=== PATIENT | female | born 1990 | race Caucasian/White ===

== ENCOUNTER 2017-12-25 21:31 | Emergency (ER) | payer BC ==
[~2017-12-25] VITALS: Ht 165.1 cm; Wt 104.3 kg
[~2017-12-25 21:31] MED LIST: IBUP-1773 PO; PREN-37 PO
[2017-12-25] MEDS ORDERED: SERT25TA PO (21:48)
--- NOTE | 2017-12-25 23:15 | ED EENT ---
History of Present Illness General Chief Complaint: Ear Problems Stated Complaint: L EAR POPPING,PAIN Nursing Triage Note: PT PRESENTS TO ER WITH COMPLAINT OF LEFT EAR PAIN. STATES SHE HAD SINUS ISSUES THIS PAST WEEK. STATES HER EAR POPPED TODAY AND HAD SHOOTING PAIN DOWN HER NECK. ALSO STATES THAT THE LEFT SIDE OF HER FACE FEELS NUMB AND THE INSIDE OF HER MOUTH. Source: patient Exam Limitations: no limitations History of Present Illness Date Seen by Provider: Dec 25, 2017 Time Seen by Provider: 23:15 Initial Comments 27-year-old female patient presents to the emergency department complains of left ear pain beginning today. Does complain of nasal congestion, rhinorrhea, and sore throat since last week. Does report feeling a pop in the left ear and clear fluid draining from the ear earlier today. Timing/Duration: abrupt Location: ear (L) Prearrival Treatment: other (reports taking 2 Tylenol and 400 mg of ibuprofen at 2000 today.) Allergies and Home Medications Allergies Coded Allergies: No Known Drug Allergies (Unverified , 06/14/16) Patient Home Medication List Home Medication List Reviewed: Yes Review of Systems Constitutional: No chills, No dizziness, No fever; malaise Eyes: No Symptoms Reported Ears: See HPI Nose: see HPI Mouth: no symptoms reported Throat: see HPI, pain, painful swallowing; denies difficulty with fluids Respiratory: no symptoms reported Cardiovascular: no symptoms reported Gastrointestinal: no symptoms reported Musculoskeletal: no symptoms reported Skin: no symptoms reported Neurological: No Symptoms Reported All Other Systems Reviewed Negative Unless Noted: Yes (Negative excepted noted.) Past Qdmtvqq-Trmtsm-Tboxzo Hx Patient Social History Alcohol Use: Denies Use Recreational Drug Use: No Smoking Status: Former Smoker Type Used: Cigarettes Former Smoker, Quit: Jun 16, 2013 Recent Foreign Travel: No Contact w/Someone Who Travel: No Recent Infectious Disease Expo: No Recent Hopitalizations: No Immunizations Up To Date Tetanus Booster (TDap): Unknown Seasonal Allergies Seasonal Allergies: Yes Past Medical History Surgeries: Yes (C SECTION 04/2015) Section Respiratory: No (BRONCHOSCOPY ) Cardiac: No Neurological: No Reproductive Disorders: No Female Reproductive Disorders: Denies Gastrointestinal: No Musculoskeletal: Yes Chronic Back Pain Endocrine: No Cancer: No Psychosocial: Yes Anxiety, Depression Integumentary: No Blood Disorders: No Adverse Reaction/Blood Tranf: No Family Medical History Reviewed Nursing Family Hx Ankylosing spondylitis 19 MOTHER Asthma SON SON No Pertinent Family Hx Physical Exam Vital Signs Vital Signs - First Documented 12/25/17 21:40 Temp 97.0 Pulse 95 Resp 20 B/P (MAP) 143/100 (114) Pulse Ox 100 O2 Delivery Room Air General Appearance: WD/WN, no apparent distress, obese Eyes: bilateral eye normal inspection, bilateral eye PERRL, bilateral eye EOMI Ears: right ear TM normal; left ear TM red, left ear TM perforation; bilateral ear auricle normal, bilateral ear canal normal Nose: other (positive nasal congestion.) Mouth/Throat: normal mouth inspection; No excessive drooling, No mandibular swelling, No maxillary swelling, No uvula swelling, No voice changes; other ( positive pharyngeal erythema.) Neck: full range of motion, supple, other (anterior cervical lymphadenopathy, tender to palpation.) Cardiovascular: normal peripheral pulses, regular rate, rhythm, no murmur Respiratory: lungs clear, normal breath sounds, no respiratory distress, no accessory muscle use Neurologic/Psychiatric: alert, oriented x 3, other (flat affect.) Skin: normal color, warm/dry Progress/Results/Core Measures Vital Signs/I&O 12/25/17 21:40 Temp 97.0 Pulse 95 Resp 20 B/P (MAP) 143/100 (114) Pulse Ox 100 O2 Delivery Room Air Blood Pressure Mean: 114 Departure Impression Primary Impression: Left otitis media with spontaneous rupture of eardrum Additional Impression: Upper respiratory infection Qualified Codes: J06.9 - Acute upper respiratory infection, unspecified Disposition: 01 HOME, SELF-CARE Condition: Improved Departure-Patient Inst. Decision time for Depature: 23:27 Referrals: NO,LOCAL PHYSICIAN (PCP) Primary Care Physician Patient Instructions: Ruptured Eardrum (DC) Add. Discharge Instructions: All discharge instructions reviewed with patient and/or family. Voiced understanding. Medications as instructed. Use Tylenol Extra Strength over-the- counter as directed for pain. Ibuprofen 800 mg by mouth every 8 hours as needed for pain. Follow-up with your family practitioner for recheck as an outpatient. Return to the emergency department for worsened symptoms or any other concerns. Scripts Cefdinir (Cefdinir) 300 Mg Capsule 300 MG PO BID, #20 CAP 0 Refills Prov: FRANCE LAM 12/25/17 Ofloxacin (Ofloxacin) 5 Ml Drops 10 DROPS OT BID, #14 EA 0 Refills Prov: FRANCE LAM 12/25/17 FRANCE LAM Dec 25, 2017 23:15
[2017-12-25] MEDS ORDERED: IBUPROFEN 800 MG (MOTRIN) TAB PO STA (23:26)
[2017-12-25] MEDS ORDERED: OFLO5DRO7 OT (23:29)
[2017-12-25] MEDS ORDERED: CEFD300C3 PO (23:29)
[2017-12-25] MEDS ORDERED: CEPHALEXIN 250 MG (KEFLEX) CAP PO ONE (23:30)
[2017-12-25 23:40] VITALS: BP 138/98
== END 2017-12-25 23:39 | disposition home or self-care (01) ==
LOC: EDUNIT# 21:31 → ER 21:34
DX: H72.92 Unspecified perforation of tympanic membrane, left ear (principal); J06.9 Acute upper respiratory infection, unspecified; F41.9 Anxiety disorder, unspecified; F32.9 Major depressive disorder, single episode, unspecified; Z87.59 Personal history of other complications of pregnancy, childbirth and the puerperium; Z87.891 Personal history of nicotine dependence
CPT/HCPCS: 99283

== ENCOUNTER 2018-08-12 16:10 | Outpatient (CLI) | payer BC ==
[~2018-08-12] VITALS: Ht 165.1 cm; Wt 121.8 kg
[~2018-08-12 16:10] MED LIST changes: +CEFD300C3 PO; +OFLO5DRO7 OT; +SERT25TA PO
[2018-08-12] MEDS ORDERED: NS 1000 ML IV BAG IV ONE (17:00)
[2018-08-12] MEDS ORDERED: PROMETHAZINE INJ 25 MG/ML (PHENERGAN) AMP IVP NR (17:00)
[2018-08-12] MEDS ORDERED: NS IV 1000 ML 1,000 ML IV SCH (17:00)
[2018-08-12 17:42] LABS: BASOPHILS % (AUTO) 0 % (0-10); EOSINOPHILS # (AUTO) 0.2 10^3/uL (0.0-0.3); EOSINOPHILS % (AUTO) 2 % (0-10); HEMATOCRIT 40 % (35-52); HEMOGLOBIN 13.5 G/DL (11.5-16.0); LYMPHOCYTES % (AUTO) 23 % (12-44); MEAN CORPUSCULAR HEMOGLOBIN 28 PG (25-34); MEAN CORPUSCULAR HGB CONC 34 G/DL (32-36); MEAN CORPUSCULAR VOLUME 84 FL (80-99); MEAN PLATELET VOLUME 9.3 FL (7.4-10.4); MONOCYTES # (AUTO) 0.6 X 10^3 (0.0-1.0); MONOCYTES % (AUTO) 6 % (0-12); NEUTROPHILS # (AUTO) 6.1 X 10^3 (1.8-7.8); NEUTROPHILS % (AUTO) 69 % (42-75); PLATELET COUNT 367 10^3/uL (130-400); RED BLOOD COUNT 4.76 10^6/uL (4.35-5.85); RED CELL DISTRIBUTION WIDTH 14.4 % (10.0-14.5); WHITE BLOOD COUNT 8.9 10^3/uL (4.3-11.0)
[2018-08-12 18:00] LABS: ALANINE AMINOTRANSFERASE 10 U/L (0-55); ALBUMIN 3.7 GM/DL (3.2-4.5); ALKALINE PHOSPHATASE 68 U/L (40-136); BILIRUBIN,TOTAL 0.4 MG/DL (0.1-1.0); BUN/CREATININE RATIO 7; CARBON DIOXIDE 21 MMOL/L (21-32); CHLORIDE 106 MMOL/L (98-107); CREATININE SERUM 0.68 MG/DL (0.60-1.30); GFR ESTIMATED > 60; GLUCOSE 73 MG/DL (70-105); POTASSIUM 3.4 MMOL/L (3.6-5.0); SODIUM 137 MMOL/L (135-145); TOTAL PROTEIN 7.1 GM/DL (6.4-8.2)
[2018-08-12 18:02] LABS: BASOPHILS % (MANUAL) 1 %; EOSINOPHILS % (MANUAL) 2 %; LYMPHOCYTES % (MANUAL) 23 %; MONOCYTES % (MANUAL) 7 %; NEUTROPHILS % (MANUAL) 67 %
[2018-08-12 18:03] LABS: RBC MORPH NORMAL
[2018-08-12] MEDS ORDERED: DOXY1TAB6 PO (19:54)
[2018-08-12 19:55] VITALS: BP 115/73
[2018-08-12] MEDS ORDERED: PREN-102 PO (19:55)
--- NOTE | 2018-08-16 20:46 | Physician Query-Final Dx ---
JIM TATE 08/16/18 8:46pm: Clinic Account Progress/Dx Physician Query: Please give diagnosis Date of Service Aug 12, 2018 at 16:10 YESSENIA VALERA DO 08/26/18 3:16pm: Clinic Account Progress/Dx DIAGNOSIS: Diagnosis 18 week nausea/vomiting, dizziness, dehydration JIM TATE Aug 16, 2018 8:46 pm YESSENIA VALERA DO Aug 26, 2018 3:16 pm
== END 2018-08-12 20:05 | disposition home or self-care (01) ==
LOC: WSo 16:10 → LDRP 16:11 → WSo 20:05
PROVIDERS: ATTEND Obstetrics & Gynecology
DX: O21.9 Vomiting of pregnancy, unspecified (principal); O99.282 Endocrine, nutritional and metabolic diseases complicating pregnancy, second trimester; E86.0 Dehydration; R42 Dizziness and giddiness; Z3A.18 18 weeks gestation of pregnancy
CPT/HCPCS: 36415; 80053; 85007; 85027; 96360; 96361; 99214

== ENCOUNTER → 2018-09-12 | Outpatient (CLI) | payer BC, MEDICAID ==
[~2018-09-12] MED LIST changes: +DOXY1TAB6 PO; +PREN-102 PO
--- NOTE | 2018-09-12 13:42 | Diagnostic Imaging Report ---
INDICATION: Anatomy scan. TECHNIQUE: Multiple real-time grayscale images were obtained over the gravid uterus. COMPARISON: None FINDINGS: There is a single live fetus in a cephalic presentation. heart rate was recorded at 156 beats per minute. Placenta is posterior. Amniotic fluid volume is normal. survey demonstrates kidneys, bladder and stomach to be unremarkable. brain is unremarkable. There is a four-chamber heart. The cord insertion appears normal although three-vessel cord is not well seen on today's study. In addition, spine is not well seen. Biometrical measurements are as follows: Biparietal 5.82 cm, age 23 weeks 6 days. Head circumference 22.44 cm, age 24 weeks 4 days. Abdominal circumference 18.79 cm, age 23 weeks 4 days. Femur length 4.36 cm, age 24 weeks 3 days. Sonographic estimate age: 24 weeks 1 days. Sonographic estimated date of delivery: 01/01/2019. Estimated Weight: 644 gm (+/- 94 gm). LMP percentile: 98%. heart rate: 156 beats per minute. number: 1 of 1. IMPRESSION: Single live IUP approximately 24 weeks 1 days gestational age with estimated date of confinement sonographically of 01/01/2019. Three-vessel cord and spine are not well visualized on today's study. Followup could be performed. Dictated by: Dictated on workstation # [id number]
== END ==
LOC: RAD 11:47
PROVIDERS: ATTEND Obstetrics & Gynecology
DX: Z36.89 Encounter for other specified antenatal screening (principal); Z3A.24 24 weeks gestation of pregnancy
CPT/HCPCS: 76805

== ENCOUNTER 2018-11-28 14:52 | Outpatient (CLI) | payer BC, MEDICAID ==
[~2018-11-28] VITALS: Ht 165.1 cm; Wt 122.7 kg
--- NOTE | 2018-11-28 14:40 | NUR ---
Arrived to unit with c/o N/V today with reports of emesis with bright red blood in it. emesis x3 today. wt obtained and to room 302. To bed and oriented to call light and bed controls. plan of care reviewed with pt and verbalized understanding.
--- NOTE | 2018-11-28 14:45 | NUR ---
Dr Chavez notified of pt arrival and new orders received.
[2018-11-28] MEDS ORDERED: NS IV 500 ML 500 ML IV ONE (15:00)
[2018-11-28 15:39] VITALS: BP 132/65
[2018-11-28] MEDS ORDERED: FAMO-119 PO (15:44)
--- NOTE | 2018-11-28 15:47 | NUR ---
pt currently with eczema noted on right and left inner elbow area and to upper chest area.
[2018-11-28 15:55] LABS: BASOPHILS % (AUTO) 0 % (0-10); EOSINOPHILS # (AUTO) 0.1 10^3/uL (0.0-0.3); EOSINOPHILS % (AUTO) 1 % (0-10); HEMATOCRIT 36 % (35-52); HEMOGLOBIN 12.2 G/DL (11.5-16.0); LYMPHOCYTES # (AUTO) 2.5 X 10^3 (1.0-4.0); LYMPHOCYTES % (AUTO) 24 % (12-44); MEAN CORPUSCULAR HEMOGLOBIN 28 PG (25-34); MEAN CORPUSCULAR HGB CONC 34 G/DL (32-36); MEAN CORPUSCULAR VOLUME 84 FL (80-99); MEAN PLATELET VOLUME 9.6 FL (7.4-10.4); MONOCYTES # (AUTO) 0.6 X 10^3 (0.0-1.0); MONOCYTES % (AUTO) 6 % (0-12); NEUTROPHILS # (AUTO) 7.2 X 10^3 (1.8-7.8); NEUTROPHILS % (AUTO) 69 % (42-75); PLATELET COUNT 368 10^3/uL (130-400); RED CELL DISTRIBUTION WIDTH 13.9 % (10.0-14.5); WHITE BLOOD COUNT 10.5 10^3/uL (4.3-11.0)
[2018-11-28] MEDS ORDERED: D5 LR IV SOLUTION 1,000 ML IV SCH (16:00)
[2018-11-28 16:15] LABS: ALANINE AMINOTRANSFERASE 7 U/L (0-55); ALBUMIN 3.2 GM/DL (3.2-4.5); ALKALINE PHOSPHATASE 78 U/L (40-136); BILIRUBIN,TOTAL 0.3 MG/DL (0.1-1.0); BUN/CREATININE RATIO 8; CALCIUM 9.1 MG/DL (8.5-10.1); CARBON DIOXIDE 19 MMOL/L (21-32); CHLORIDE 107 MMOL/L (98-107); CREATININE SERUM 0.65 MG/DL (0.60-1.30); GFR ESTIMATED > 60; GLUCOSE 76 MG/DL (70-105); POTASSIUM 3.5 MMOL/L (3.6-5.0); SODIUM 137 MMOL/L (135-145); TOTAL PROTEIN 6.3 GM/DL (6.4-8.2)
[2018-11-28] MEDS ORDERED: CALCIUM CARBONATE 500 MG (TUMS) TAB.CHEW PO NR (16:45)
--- NOTE | 2018-11-28 16:55 | NUR ---
Dr Chavez to bedside to see patient and review plan of care.
--- NOTE | 2018-11-28 17:10 | NUR ---
pt's ordering her a bagel to eat.
--- NOTE | 2018-11-28 18:30 | NUR ---
rn to bedside. pt reports she did have a bagel and does feel slightly nauseated but no emesis just dry heave. IV fluids increased to finish bag of iv fluids and pt ok with being discharged home. Dr Chvaez gave verbal orders for discharge when he came to see patient earlier.
--- NOTE | 2018-11-28 19:05 | NUR ---
Discharge instructions explained and signed. pt verbalized understanding of instructions and denied questions. pt up to get dressed.
--- NOTE | 2018-11-28 19:10 | NUR ---
Discharged to home. ambulates self downstairs accompanied by s.o. to private vehicle with belongings in hand.
== END 2018-11-28 19:10 | disposition home or self-care (01) ==
LOC: LDRP 14:52 → WSo 14:52
PROVIDERS: ATTEND Obstetrics & Gynecology
DX: O21.2 Late vomiting of pregnancy (principal); Z3A.33 33 weeks gestation of pregnancy
CPT/HCPCS: 36415; 80053; 85025; 96360; 96361; 99213

== ENCOUNTER 2018-12-27 09:20 | Outpatient (CLI) | payer BC ==
[~2018-12-27] VITALS: Ht 165.1 cm; Wt 122.7 kg
[~2018-12-27 09:20] MED LIST changes: +FAMO-119 PO
[2018-12-27] MEDS ORDERED: SERT25TA PO (09:30)
[2018-12-27 09:34] VITALS: BP 124/74
== END 2018-12-27 10:55 | disposition home or self-care (01) ==
LOC: PREOP 09:20
PROVIDERS: ATTEND Obstetrics & Gynecology
DX: Z01.818 Encounter for other preprocedural examination (principal)
CPT/HCPCS: 87081

== ENCOUNTER 2019-01-05 06:01 | Inpatient (IN) | payer BC, MEDICAID ==
[2019-01-05] VITALS (9 sets, daily range): BP systolic 84–115; BP diastolic 44–77
[~2019-01-05] VITALS: Ht 165.1 cm; Wt 123.8 kg
--- NOTE | 2019-01-05 05:58 | NUR ---
EVELYN BOWENS V presented to unit via ambulatory from home, accompanied bys.o. , with c/o PREVIOUS SECTION. EVELYN BOWENS V weighed, gowned, voided, and to bed. EFHM and TOCO applied, VS taken. EVELYN BOWENS V oriented to bed controls, call light, TV, heat, and A/C controls.
[~2019-01-05 06:01] MED LIST changes: +CITRIC ACID/SOB CIT (BICITRA) 30 ML UDC ONE; +FAMOTIDINE 20MG/2ML IV (PEPCID) ONE; +LACTATED RINGERS 1,000 ML IV ONE; +METOCLOPRAMIDE INJ 10 MG/2 ML (REGLAN) ONE; +ceFAZolin 2 GM/50 ML NS 50 ML ONE
[2019-01-05] MEDS ORDERED: LACTATED RINGERS 1,000 ML IV SCH ×2 (06:05)
[2019-01-05] MEDS ORDERED: FAMOTIDINE 20MG/2ML IV (PEPCID) IV ONE (06:15)
[2019-01-05] MEDS ORDERED: ceFAZolin 2 GM IV Premixed 50 ML IV ONE (06:15)
[2019-01-05] MEDS ORDERED: METOCLOPRAMIDE INJ 10 MG/2 ML (REGLAN) IV ONE (06:15)
[2019-01-05] MEDS ORDERED: CITRIC ACID/SOB CIT (BICITRA) 30 ML UDC PO ONE (06:15)
[2019-01-05 06:30] LABS: BASOPHILS % (AUTO) 0 % (0-10); EOSINOPHILS # (AUTO) 0.1 10^3/uL (0.0-0.3); EOSINOPHILS % (AUTO) 1 % (0-10); HEMATOCRIT 36 % (35-52); HEMOGLOBIN 11.7 G/DL (11.5-16.0); LYMPHOCYTES # (AUTO) 2.9 X 10^3 (1.0-4.0); LYMPHOCYTES % (AUTO) 29 % (12-44); MEAN CORPUSCULAR HEMOGLOBIN 27 PG (25-34); MEAN CORPUSCULAR HGB CONC 33 G/DL (32-36); MEAN CORPUSCULAR VOLUME 83 FL (80-99); MEAN PLATELET VOLUME 9.9 FL (7.4-10.4); MONOCYTES # (AUTO) 0.7 X 10^3 (0.0-1.0); MONOCYTES % (AUTO) 7 % (0-12); NEUTROPHILS # (AUTO) 6.2 X 10^3 (1.8-7.8); NEUTROPHILS % (AUTO) 62 % (42-75); PLATELET COUNT 353 10^3/uL (130-400); RED CELL DISTRIBUTION WIDTH 14.4 % (10.0-14.5)
--- NOTE | 2019-01-05 06:44 | NUR ---
Anes student in room.
[2019-01-05] MEDS ORDERED: OXYTOCIN/NORMAL SALINE 1,000 ML IV ONE (06:56)
[2019-01-05] MEDS ORDERED: fentaNYL INJECTION 100 MCG/2 ML AMP ONE (06:57)
[2019-01-05] MEDS ORDERED: KETOROLAC 30 MG/ML VIAL ONE (07:01)
[2019-01-05] MEDS ORDERED: BUPIVACAINE 0.5% 30 ML (SENSORCAINE) VIAL ONE (07:01)
[2019-01-05] MEDS ORDERED: ONDANSETRON 4 MG/2 ML (SDV) Z0FRAN ONE ×2 (07:01→08:15)
--- NOTE | 2019-01-05 07:05 | History & Physical-OB ---
OB - Chief Complaint & HPI Date/Time Date of Admission: Date of Admission: January 05, 2019 at 6:01 am Date seen by a Provider: January 05, 2019 Time Seen by a Provider: 07:10 Chief Complaint/History OB-Reason for Admission/Chief: Section Hx : 2 Hx Para: 2 Expected Date of Delivery: January 12, 2019 Gestational Age in Weeks: 39 Gestational Age in Days: 0 Indication for : desires repeat Admission Nurse Assessment Rev: Yes History of Labs O pos Antibody neg RI RPR NR HBsAg NR HCsAg NR HIV NR GC neg GBS neg Allergies and Home Medications Allergies Coded Allergies: No Known Drug Allergies (Unverified , 01/05/19) Home Medications Doxylamine Succinate/Vit B6 1 Each Tab.ir.dr, 1 EACH PO HS PRN for NAUSEA/ VOMITING Prescribed by: BETH BURNS on 08/12/181953 Famotidine 20 Mg Tablet, 20 MG PO DAILY, (Reported) Vits #93/Iron Fum/FA 1 Each Tablet, 1 EACH PO DAILY Prescribed by: BETH BURNS on 08/12/181954 Sertraline HCl 25 Mg Tablet, 25 MG PO DAILY, (Reported) Patient Home Medication List Home Medication List Reviewed: Yes OB - History Hx of Present Care: Yes Ultrasounds: Normal mid trimester US Obstetrical Complications: None Medical Complications: None Delivery History Hx Blood Disorders: No Adverse Rxn to Tranfusion: No (N/A) Patient Past Medical History n/a Social History/Family History HIV/AIDS: No Sexually Transmitted Disease: No Alcohol Use: Denies Use Recreational Drug Use: No Immunizations Hepatitis A: No Hepatitis B: No Tetanus Booster (TDap): Unknown OB - Admission Exam Physical Exam Vitals: Vital Signs 01/05/19 06:10 Temp 97.9 Pulse 107 Resp 18 B/P (MAP) 115/71 (86) O2 Delivery Room Air HEENT: NCAT Heart: Rhythm Normal Lungs: Clear Abdomen: Gravid Extremities: Normal Reflexes: Normal Heart Rate: 130's Accelerations: Accelerations Present Decelerations: No Decelerations Short Term Variability: Present Market Research Specialist Variability: Average (6-25) Contractions on Admission: 6-10 Minutes Apart Intensity: Mild Labs Laboratory Tests Test 01/05/19 06:15 Range/Units White Blood Count 10.0 4.3-11.0 10^3/uL Red Blood Count 4.31 L 4.35-5.85 10^6/uL Hemoglobin 11.7 11.5-16.0 G/DL Hematocrit 36 35-52 % Mean Corpuscular Volume 83 80-99 FL Mean Corpuscular Hemoglobin 27 25-34 PG Mean Corpuscular Hemoglobin Concent 33 32-36 G/DL Red Cell Distribution Width 14.4 10.0-14.5 % Platelet Count 353 130-400 10^3/uL Mean Platelet Volume 9.9 7.4-10.4 FL Neutrophils (%) (Auto) 62 42-75 % Lymphocytes (%) (Auto) 29 12-44 % Monocytes (%) (Auto) 7 0-12 % Eosinophils (%) (Auto) 1 0-10 % Basophils (%) (Auto) 0 0-10 % Neutrophils # (Auto) 6.2 1.8-7.8 X 10^3 Lymphocytes # (Auto) 2.9 1.0-4.0 X 10^3 Monocytes # (Auto) 0.7 0.0-1.0 X 10^3 Eosinophils # (Auto) 0.1 0.0-0.3 10^3/uL Basophils # (Auto) 0.0 0.0-0.1 10^3/uL OB - Assessment/Plan/Diagnosis Assessment Assessment: section Admission Dx 28 yo @ 39 weeks Previous GBS neg BMI 45 Admission Status: Inpatient Order (span 2 midnights) Reason for Inpatient Admission: Repeat Plan Plan: Section ANNI BARRERA DO January 05, 2019 7:05 am
--- NOTE | 2019-01-05 07:08 | Discharge Inst-Women's Service ---
Discharge Inst-Women's Serv Depart Medication/Instructions New, Converted or Re-Newed RX: RX on Chart Final Diagnosis POD 2 RLTCS Consults/Follow Up Additional Follow Up: Yes Orders/Referrals Dr. Chavez in 7-10 days and in 6 weeks Activity Activity: Activity as Tolerated Driving Instructions: No Driving for 1 Week NO SMOKING: NO SMOKING Nothing Inside Vagina: No Douching, No [place], No Tampons Diet Discharge Diet: No Restrictions Symptoms to Report to : Bleeding Excessive, Pain Increased, Fever Over 101 Degrees F, Vaginal Bleeding Increase, Questions/Concerns For Any Problems or Questions: Contact Your Physician Skin/Wound Care Infection Signs and Symptoms: Increased Redness, Foul Odor of Wound, Increased Drainage, Skin Itchy or Has a Rash, Increased Swelling, Temperature Above 101 F Operative Area Clean and Dry: Keep Incision Clean/Dry Stitches/[place]/Dermabond: Dermabond, Care of Stitches Bathing Instructions: ANNI Ron DO January 05, 2019 7:08 am
[2019-01-05] MEDS ORDERED: ACHD5005 PO (07:09)
[2019-01-05] MEDS ORDERED: DOCU100C37 PO (07:09)
[2019-01-05] MEDS ORDERED: IBUP-844 PO (07:09)
[2019-01-05] MEDS ORDERED: MEASLES,MUMPS,RUBELLA 1 EA INJ SC SCH (07:15)
[2019-01-05] MEDS ORDERED: ONDANSETRON 4 MG/2 ML (SDV) Z0FRAN IVP PRN (07:15)
[2019-01-05] MEDS ORDERED: TETANUS,DIPTH,PERTUSS P/F (BOOSTRIX) 0.5 ML VIAL IM SCH (07:15)
--- NOTE | 2019-01-05 07:16 | NUR ---
DR BARRERA AT BEDSIDE. PT WALKED BACK TO OR BY DEPUTY ADMINISTRATOR AT THIS TIME.
[2019-01-05] MEDS ORDERED: ceFAZolin 2 GM/50 ML NS 50 ML IV ONE (07:30)
[2019-01-05] MEDS ORDERED: PHENYLEPHRINE 100 MCG/ML 10 ML (ANESTHESIA) SYR ONE (08:01)
[2019-01-05] MEDS: OXYTOCIN/NORMAL SALINE 500 ML IV SCH ×2 (08:06→11:30)
[2019-01-05] MEDS: KETOROLAC 30 MG/ML VIAL IV SCH ×3 (08:06→20:37)
--- NOTE | 2019-01-05 10:10 | NUR ---
VITO WITH RT WAS CALLED AT THIS TIME BY THIS RN TO NOTIFY ABOUT IS FOR PT.
[2019-01-05] MEDS: HYDROcodone/APAP 5 MG/325 MG (LORTAB) TAB PO PRN ×2 (12:22→17:42)
--- NOTE | 2019-01-05 13:50 | NUR ---
REPORT RECEIVED FROM MARIBEL CAMPBELL RN.
--- NOTE | 2019-01-05 13:57 | OPERATIVE REPORT ---
DATE OF SERVICE: 01/05/2019 PREOPERATIVE DIAGNOSES: 1. A 28-year-old G2, P2 at 39 weeks gestation. 2. Previous section. POSTOPERATIVE DIAGNOSES: 1. A 28-year-old G2, P2 at 39 weeks gestation. 2. Previous section. PROCEDURE: Repeat low transverse section. SURGEON: Dani Barrera DO ANESTHESIA: Spinal. ESTIMATED BLOOD LOSS: 500 mL. URINE OUTPUT: 100 mL, clear at the end of the procedure. FLUIDS: 2200 mL of lactated Ringer solution. FINDINGS: A live female weighing 7 pounds 8 ounces, Apgars of 9 and 9. Grossly normal appearing uterus, bilateral fallopian tubes and ovaries. INDICATION FOR PROCEDURE: This 28-year-old female is a patient, who had sought care in my office. Her first ended in due to twin with malpresentation. We discussed ; however, in the third trimester, the patient wished to proceed with repeat . Risks of the procedure were discussed with the patient in detail including risk of bleeding, infection, damage to surrounding structures including, but not limited to bowel, bladder, ureter, kidneys, postoperative recovery timeframe, postoperative complications, risk from anesthesia and even were discussed with the patient. After all of her questions were answered, consent was obtained in the preoperative area and the patient was taken to the operating room. OPERATIVE REPORT IN DETAIL: Once in the operating room, spinal anesthesia was found to be adequate. She was placed in supine position with a leftward tilt, prepped and draped in a normal sterile fashion. Timeout was performed and anesthesia was tested. I then proceeded to making a Pfannenstiel skin incision through the previously existing scar using a knife and carried down to underlying fascia using Bovie cautery. The fascial incision extended laterally using Bovie cautery. Superior aspect of the fascial incision was then grasped with Mckenna clamps, tented up and dissected off the underlying rectus muscle. The inferior aspect of the fascial incision was then grasped with Mckenna clamps, tented upward and dissected off the underlying rectus muscles. The rectus muscle was then dissected down the midline using Jacobs scissors, which exposed the peritoneum, which I entered bluntly and extended using blunt traction. An Miki ring retractor was placed within the peritoneal incision, which offered excellent lateral side wall retraction. I then identified the lower uterine segment, which was found to be thinned out. I made a low transverse incision to the vesicouterine peritoneum and bluntly dissected this off the lower uterine segment. I then proceeded with my myotomy until membranes were visualized, at which point, I extended the uterine incision laterally and superiorly using bandage scissors. Amniotomy was performed and during the process of doing this, clear fluid was noted. The infant was found in the vertex presentation. With gentle fundal pressure, the infant's head is elevated at the incision where it is delivered through the incision. The nares and oropharynx were bulb suctioned. A nuchal cord was reduced x1. The infant was then brought out to the operative field where the cord was doubly clamped and cut and was handed off to waiting nurses in attendance. Cord blood was collected. Three-vessel cord was intact. Placenta was delivered spontaneously thereafter. IV Pitocin was initiated to facilitate uterine contraction. Uterine fundus became firmer with bimanual massage. The uterus was exteriorized and cleared of all endometrial clots and debris. I then proceeded with closing the uterine incision using 0 Vicryl suture in a running locked fashion. Second layer of imbricating 0 Monocryl was placed. Excellent hemostasis was noted after doing this. I then placed the uterus back in the pelvis and copiously irrigated the pelvis using normal saline. Once again, there was no active bleeding noted from any of my dissection planes. I placed Interceed antiadhesive over my low transverse incision and proceeded with closing the peritoneum using 3-0 Vicryl suture in a running fashion. The rectus muscle was reapproximated using 3-0 Vicryl suture in interrupted fashion. The fascia was reapproximated with 0 Vicryl suture in a running fashion. Subcutaneous tissue was reapproximated using 3-0 plain and interrupted subcutaneous stitch and the skin was reapproximated using 4-0 Monocryl in a running subcuticular. Dermabond was applied to incision and sterile dressings with adhesive white tape. The patient tolerated the procedure well and sent to recovery area in stable condition. Lap and sponge counts were correct at the end of the procedure. Instrument counts were correct as well. Two grams of Ancef were given preoperatively for infection prophylaxis. Job ID: [id number] DocumentID: [id number] Dictated Date: 01/05/2019 08:49:26 Sheet Metal Pattern Cutter Date: 01/05/2019 13:56:40 Dictated By: DANI BARRERA DO
[2019-01-05] MEDS ORDERED: CATHETER FLUSH 10 ML SYR IV SCH (14:00)
--- NOTE | 2019-01-05 14:35 | NUR ---
UP TO THE BATHROOM. VOIDED 25 CC URINE. PERICARE PERFORMED. PAD CHANGE. BACK TO BED WITHOUT PROBLEMS.
[2019-01-05] MEDS ORDERED: D5 LR IV SOLUTION 1,000 ML IV ONE (15:25)
[2019-01-05] MEDS: D5 LR IV SOLUTION 1,000 ML IV SCH (15:30)
--- NOTE | 2019-01-05 16:15 | NUR ---
TO ROOM TO ASSIST WITH .
--- NOTE | 2019-01-05 16:30 | NUR ---
UP TO THE BATHROOM. VOIDED 300CC URINE. PERICARE PERFORMED WITH PAD/UNDERWEAR CHANGE. BACK TO BED. FF U/2. VAG FLOW LT RUBRA. SPOUSE AT BEDSIDE. IN ROOM.
--- NOTE | 2019-01-05 17:42 | NUR ---
LORTAB 1 TAB P.O. FOR C/O ABD PAIN.
[2019-01-05] MEDS: SIMETHICONE 80 MG (MYLICON) CHEW PO PRN (18:01)
[2019-01-05] MEDS: DOCUSATE SODIUM 100 MG (COLACE) CAP PO SCH (20:36)
[2019-01-06 00:25] VITALS: BP 98/56
[2019-01-06] MEDS: HYDROcodone/APAP 5 MG/325 MG (LORTAB) TAB PO PRN ×4 (00:25→19:31)
[2019-01-06] MEDS: KETOROLAC 30 MG/ML VIAL IV SCH (01:51)
[2019-01-06 03:51] VITALS: BP 102/58
[2019-01-06 06:26] LABS: BASOPHILS % (AUTO) 0 % (0-10); EOSINOPHILS # (AUTO) 0.1 10^3/uL (0.0-0.3); EOSINOPHILS % (AUTO) 2 % (0-10); HEMATOCRIT 31 % (35-52); LYMPHOCYTES # (AUTO) 2.8 X 10^3 (1.0-4.0); LYMPHOCYTES % (AUTO) 34 % (12-44); MEAN CORPUSCULAR HEMOGLOBIN 27 PG (25-34); MEAN CORPUSCULAR HGB CONC 32 G/DL (32-36); MEAN CORPUSCULAR VOLUME 85 FL (80-99); MONOCYTES # (AUTO) 0.5 X 10^3 (0.0-1.0); MONOCYTES % (AUTO) 7 % (0-12); NEUTROPHILS # (AUTO) 4.8 X 10^3 (1.8-7.8); NEUTROPHILS % (AUTO) 58 % (42-75); PLATELET COUNT 280 10^3/uL (130-400); RED CELL DISTRIBUTION WIDTH 14.2 % (10.0-14.5); WHITE BLOOD COUNT 8.3 10^3/uL (4.3-11.0)
[2019-01-06] MEDS: D5 LR IV SOLUTION 1,000 ML IV SCH (06:45)
--- NOTE | 2019-01-06 07:00 | Postpartum Progress Note ---
Note Note Day # 1 Subjective: Patient is without complaints. Ambulating, voiding. Tolerating a regular diet without nausea or vomiting. Normal lochia. Pain is well controlled with oral pain medications. Objective: Physical Exam: General - Alert and oriented, no apparent distress Abdomen - Soft, appropriately tender to palpation, non-distended, fundus firm at umbilicus Extremities - no edema, negative Efrain's bilaterally Incision- c/d/i Assessment: POD 1 RLTCS Acute blood loss anemia superimposed on anemia in Plan: Routine care. Encourage breast feeding. Encourage ambulation. Ferrous sulfate supplementation. Plan for discharge tomorrow Vitals - Labs Vital Signs - I&O Vital Signs Date Time Temp Pulse Resp B/P (MAP) Pulse Ox O2 Delivery O2 Flow Rate FiO2 01/06/19 03:51 98.0 77 18 102/58 (73) 96 Room Air 01/06/19 00:25 97.8 78 18 98/56 (70) 97 Room Air 01/05/19 20:30 98.6 71 18 114/77 (89) 97 Room Air 01/05/19 16:30 98.5 80 18 109/57 (74) 97 Room Air 01/05/19 10:42 97.7 82 16 114/64 (81) Room Air 01/05/19 09:40 96.9 14 100 Room Air 01/05/19 09:25 96.8 18 100 Room Air 01/05/19 09:10 96.8 18 100 Room Air 01/05/19 08:55 96.7 14 100 Room Air 01/05/19 08:39 96.6 14 98 Room Air I & O 01/06/19 07:00 Intake Total 7950 ml Output Total 1325 ml Balance 6625 ml Labs Laboratory Tests 01/06/19 06:00: White Blood Count 8.3, Red Blood Count 3.69L, Hemoglobin 10.0L, Hematocrit 31L, Mean Corpuscular Volume 85, Mean Corpuscular Hemoglobin 27, Mean Corpuscular Hemoglobin Concent 32, Red Cell Distribution Width 14.2, Platelet Count 280, Mean Platelet Volume 10.0, Neutrophils (%) (Auto) 58, Lymphocytes (%) (Auto) 34 , Monocytes (%) (Auto) 7, Eosinophils (%) (Auto) 2, Basophils (%) (Auto) 0, Neutrophils # (Auto) 4.8, Lymphocytes # (Auto) 2.8, Monocytes # (Auto) 0.5, Eosinophils # (Auto) 0.1, Basophils # (Auto) 0.0 ANNI BARRERA DO January 06, 2019 07:00
[2019-01-06 08:00] VITALS: BP 108/59
--- NOTE | 2019-01-06 08:00 | NUR ---
A.M. ASSESSMENT COMPLETED. VSS. ENCOURAGED I.S. AND AMBULATION IN HALLS.
[2019-01-06] MEDS ORDERED: IBUPROFEN 800 MG (MOTRIN) TAB PO ONE (08:02)
[2019-01-06] MEDS: DOCUSATE SODIUM 100 MG (COLACE) CAP PO SCH ×2 (09:03→20:57)
[2019-01-06] MEDS: CALCIUM CARBONATE 500 MG (TUMS) TAB.CHEW PO SCH ×2 (09:03→23:46)
[2019-01-06] MEDS: IBUPROFEN 600 MG (MOTRIN) TAB PO SCH ×3 (09:07→20:57)
--- NOTE | 2019-01-06 10:00 | Anesthesia-Regional Post-Op ---
Regional Patient Condition Mental Status: Alert, Oriented x3 Circulation: Same as Pre-Op Headache: Absent Sensation: Full Recovery Motor Block: Absent Post Op Complications Complications None Follow Up Care/Instructions Patient Instructions None needed. Anesthesia/Patient Condition Patient is doing well, no complaints, stable vital signs, no apparent adverse anesthesia problems. No complications reported per nursing. MIGUELITO DAVIS CRNA January 06, 2019 09:59
--- NOTE | 2019-01-06 10:30 | NUR ---
CARING FOR INFANT IN ROOM. HAS BEEN IN TODAY.
[2019-01-06 12:30] VITALS: BP 117/64
[2019-01-06] MEDS: SIMETHICONE 80 MG (MYLICON) CHEW PO PRN (13:02)
--- NOTE | 2019-01-06 13:02 | NUR ---
LORTAB 2 TABS P.O. FOR C/O ABD PAIN. FAMILY AND VISITORS AT BEDSIDE. REQUESTED TO ROOM.
--- NOTE | 2019-01-06 15:30 | NUR ---
REQUEST TO THE ROOM. VISITORS AT BEDSIDE.
[2019-01-06 16:30] VITALS: BP 119/82
--- NOTE | 2019-01-06 18:00 | NUR ---
PT HAS BEEN TEARFUL A COUPLE TIMES DURING THIS SHIFT R/T INFANT BEING DIFFICULT TO LATCH. REASSURANCE GIVEN.
[2019-01-06 20:57] VITALS: BP 105/65
[2019-01-07 03:37] VITALS: BP 97/63
[2019-01-07] MEDS: IBUPROFEN 600 MG (MOTRIN) TAB PO SCH ×2 (03:37→08:28)
--- NOTE | 2019-01-07 07:53 | NUR ---
pt up showering at this time. pads and underwear given per request.
[2019-01-07 08:20] VITALS: BP 124/60
[2019-01-07] MEDS: DOCUSATE SODIUM 100 MG (COLACE) CAP PO SCH (08:28)
--- NOTE | 2019-01-07 09:00 | NUR ---
Dr Chavez to see patient.
[2019-01-07] MEDS ORDERED: CEPH-507 PO (09:03)
--- NOTE | 2019-01-07 09:06 | Postpartum Progress Note ---
Note Note Day # 1 Subjective: Patient is without complaints. Ambulating, voiding. Tolerating a regular diet without nausea or vomiting. Normal lochia. Pain is well controlled with oral pain medications. Objective: Physical Exam: General - Alert and oriented, no apparent distress Abdomen - Soft, appropriately tender to palpation, non-distended, fundus firm at umbilicus Extremities - no edema, negative Efrain's bilaterally Incision- c/d/i, redness around superior margin of the incision, warm to touch. Nontender. Assessment: POD 2 RLTCS Plan: Routine care. Encourage breast feeding. Encourage ambulation. Ferrous sulfate supplementation. Plan for discharge today Sending patient home on Keflex 500 qid x 7 days due to incisional suspension for early cellulitis Vitals - Labs Vital Signs - I&O Vital Signs Date Time Temp Pulse Resp B/P (MAP) Pulse Ox O2 Delivery O2 Flow Rate FiO2 01/07/19 08:20 97.7 77 16 124/60 (81) 97 Room Air 01/07/19 03:37 98.6 84 18 97/63 (74) 98 Room Air 01/06/19 20:57 98.0 84 18 105/65 (78) 99 Room Air 01/06/19 16:30 97.8 72 18 119/82 (94) 99 Room Air 01/06/19 12:30 98.0 81 18 117/64 (81) 98 Room Air I & O 01/07/19 07:00 Intake Total 2000 ml Output Total 1000 ml Balance 1000 ml ANNI BARRERA DO January 07, 2019 9:06 am
--- NOTE | 2019-01-07 09:22 | NUR ---
prescription called to [facility] per request pt ambulating in halls with s.o.
--- NOTE | 2019-01-07 12:40 | NUR ---
Discharge instructions explained and signed per pt. pt verbalized understanding of instructions. prescriptions given.
--- NOTE | 2019-01-07 13:35 | NUR ---
Discharged to home with belongings in hand. Downstairs in wheelchair per ws staff and to private vehicle.
== END 2019-01-07 13:35 | disposition home or self-care (01) | DRG 787 ==
LOC: LDRP 06:01
PROVIDERS: ADMIT Obstetrics & Gynecology; ATTEND Obstetrics & Gynecology
PROC: 10D00Z1 Extraction of Products of Conception, Low, Open Approach (ICD-10-PCS; principal; 2019-01-05 07:16)
DX: O34.211 Maternal care for low transverse scar from previous cesarean delivery (principal); O99.03 Anemia complicating the puerperium; D62 Acute posthemorrhagic anemia; O86.01 Infection of obstetric surgical wound, superficial incisional site; O69.81X0 Labor and delivery complicated by cord around neck, without compression, not applicable or unspecified; O99.013 Anemia complicating pregnancy, third trimester; O99.613 Diseases of the digestive system complicating pregnancy, third trimester; K21.9 Gastro-esophageal reflux disease without esophagitis; O99.213 Obesity complicating pregnancy, third trimester; E66.01 Morbid (severe) obesity due to excess calories; Z3A.39 39 weeks gestation of pregnancy; Z37.0 Single live birth
CPT/HCPCS: 36415; 85025; 86850; 86900; 86901; 94664

== ENCOUNTER 2021-08-04 12:28 | Emergency (ER) | payer BC ==
[~2021-08-04] VITALS: Ht 165 cm; Wt 104.0 kg
[~2021-08-04 12:28] MED LIST changes: +ACHD5005 PO; +CEPH-507 PO; -CITRIC ACID/SOB CIT (BICITRA) 30 ML UDC ONE; +DOCU100C37 PO; -FAMOTIDINE 20MG/2ML IV (PEPCID) ONE; +IBUP-844 PO; -LACTATED RINGERS 1,000 ML IV ONE; -METOCLOPRAMIDE INJ 10 MG/2 ML (REGLAN) ONE; +OFLO5DRO33 OT; -OFLO5DRO7 OT; -ceFAZolin 2 GM/50 ML NS 50 ML ONE
--- NOTE | 2021-08-04 13:25 | ED EENT ---
History of Present Illness General Chief Complaint: Dental Problems/Pain Stated Complaint: JAW PAIN Nursing Triage Note: ARRIVED VIA AMB TO ROOM 04. STATES SHE WOKE UP THIS AM WITH RIGHT SIDED JAW PAIN. DENIES INJURY. TOOK TYLENOL AROUND 0900 ET STATES IT DID NOT HELP. Source: patient Exam Limitations: no limitations (ANTHONY VELAZCO) History of Present Illness Date Seen by Provider: Aug 04, 2021 Time Seen by Provider: 13:22 Initial Comments Patient is a 30-year-old female presents ED with right lateral jaw pain. Pain is located anterior of the right ear. She reports a clicking sensation yesterday. Denies grinding teeth at night. She states she is having difficulty opening her mouth and side to side movement. Denies any swelling, redness. Denies any dental pain. Patient took Tylenol without much improvement. Denies headache, nausea, vomiting, diarrhea, chest pain, shortness of breath. Radiating pain into the ear and right-sided neck. (ANTHONY VELAZCO) Allergies and Home Medications Allergies Coded Allergies: No Known Drug Allergies (Unverified , 01/05/19) Patient Home Medication List Home Medication List Reviewed: Yes (ANTHONY VELAZCO) Cephalexin (Keflex) 500 Mg Capsule, 500 MG PO QID Prescribed by: ANNI BARRERA on 01/07/19 0903 Cyclobenzaprine HCl (Cyclobenzaprine HCl) 10 Mg Tablet, 10 MG PO TID Prescribed by: LISSETTE CLEMENT on 08/04/21 1406 Docusate Sodium (Docusate Sodium) 100 Mg Capsule, 100 MG PO BID PRN for CONSTIPATION-1ST LINE Prescribed by: ANNI BARRERA on 01/05/19 0709 Famotidine (Pepcid) 20 Mg Tablet, 20 MG PO DAILY, (Reported) Entered as Reported by: ISSA UMANA on 11/28/18 1544 Hydrocodone Bit/Acetaminophen (Lortab 5 Mg Tablet) 1 Tab Tab, 2 TAB PO Q6HR PRN for PAIN-MODERATE Prescribed by: ANNI BARRERA on 01/05/19 0709 Hydrocodone/Acetaminophen (Hydrocodone-Acetamin 5-325 mg) 1 Each Tablet, 1 TAB PO Q4H PRN for PAIN-MODERATE (5-7) Prescribed by: LISSETTE CLEMENT on 08/04/21 1407 Ibuprofen (Ibu) 600 Mg Tablet, 600 MG PO Q6HR Prescribed by: ANNI BARRERA on 01/05/19 0709 Naproxen (Naproxen) 500 Mg Tablet.dr, 500 MG PO BID Prescribed by: LISSETTE CLEMENT on 08/04/21 1406 Vits #93/Iron Fum/FA ( Formula Tablet) 1 Each Tablet, 1 EACH PO DAILY Prescribed by: BETH BURNS on 08/12/181954 Sertraline HCl (Zoloft) 25 Mg Tablet, 25 MG PO DAILY, (Reported) Entered as Reported by: MICHAELA ESPOSITO on 12/27/18 0930 Review of Systems Review of Systems Constitutional: No chills, No diaphoresis, No dizziness, No fever, No malaise Eyes: Denies Drainage, Denies Inflammation, Denies Pain, Denies Previous Injury Ears: Denies Dizziness; Pain; Denies Tinnitus, Denies Bloody Discharge Nose: denies congestion, denies epistaxis, denies pain Mouth: pain; denies swelling Throat: denies pain, denies swelling Respiratory: No cough, No short of breath Cardiovascular: No chest pain Gastrointestinal: No abdominal pain, No diarrhea, No nausea, No vomiting Skin: No change in color, No change in hair/nails (ANTHONY VELAZCO) Past Micdjxp-Prwcgg-Nvgdgt Hx Patient Social History Smoking Status: Never a Smoker Substance use?: No (ANTHONY VELAZCO) Immunizations Up To Date Tetanus Booster (TDap): Unknown Second COVID19 Vaccination Jim: 10/20 COVID19 Vaccine Cloth Shrinking Tester: JEANNE (ANTHONY VELAZCO) Seasonal Allergies Seasonal Allergies: Yes (ANTHONY VELAZCO) Past Medical History Surgeries: Yes (C SECTION 04/2015) Section Respiratory: No Cardiac: No Neurological: No Last Menstrual Period: Aug 02, 2021 Reproductive Disorders: No Female Reproductive Disorders: Denies Sexually Transmitted Disease: No HIV/AIDS: No Genitourinary: No Gastrointestinal: Yes Gastroesophageal Reflux Musculoskeletal: Yes Chronic Back Pain Endocrine: No HEENT: No Loss of Vision: Denies Hearing Impairment: Denies Cancer: No Psychosocial: Yes Anxiety, Depression Integumentary: Yes Eczema Blood Disorders: No Adverse Reaction/Blood Tranf: No (N/A) (ANTHONY VELAZCO) Family Medical History Ankylosing spondylitis 19 MOTHER Asthma SON SON No Pertinent Family Hx (ANTHONY VELAZCO) Physical Exam Vital Signs Vital Signs - First Documented 08/04/21 12:30 Temp 36.3 Pulse 95 Resp 16 B/P (MAP) 153/106 (122) Pulse Ox 99 O2 Delivery Room Air (RADHA MANN MD) Height, Weight, BMI Height: 5'5.00" Weight: 273lbs. 0.0oz. [id number]; 38.00 BMI Method:Stated General Appearance: WD/WN, no apparent distress Nose: normal inspection Mouth/Throat: other (Right TMJ tenderness. No significant right-sided facial swelling or redness. Oropharynx pain. No dental tenderness. 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, no motor/sensory deficits, alert, oriented x 3 Skin: normal color, warm/dry (ANTHONY VELAZCO) Progress/Results/Core Measures Results/Orders Medications Given in ED Current Medications Medications Dose Ordered Sig/Tatiana Route Start Time Stop Time Status Last Admin Dose Admin Acetaminophen/ Hydrocodone Bitart 1 ea ONCE ONCE PO 08/04/21 13:30 08/04/21 13:31 DC 08/04/21 13:30 1 EA (RADHA MANN MD) Vital Signs/I&O 08/04/21 08/04/21 12:30 14:22 Temp 36.3 Pulse 95 83 Resp 16 16 B/P (MAP) 153/106 (122) 140/98 Pulse Ox 99 98 O2 Delivery Room Air Room Air (RADHA MANN MD) Blood Pressure Mean: 122 Departure Communication (Admissions) Patient with right TMJ tenderness. This occurs with movement side to side and with chewing. She has no dental tenderness. No evidence of periodontal abscess. No lymphadenopathy. Afebrile. No parotid tenderness or swelling. Clicking noted to the right TMJ with tenderness. Ear canal without evidence of erythema, swelling. No scalp tenderness. Concerning for inflammation of the right TMJ. She states she does clench her teeth at night. Recommend anti- inflammatories. Will discharge with a few days worth of stronger pain medication as needed. Recommend ENT or dental outpatient follow-up. Recommend soft foods. Mouthguard for comfort. If any worsening pain such as redness, swelling need further evaluation. She gets improvement when she does not move her jaw. I do not feel like this is a dental infection at this time secondary to the location. Does not appear to be parotiditis at this time however continue monitoring for symptoms. No antibiotics at this time (ANTHONY VELAZCO) Impression Primary Impression: Jaw pain Disposition: HOME, SELF-CARE Condition: Improved Departure-Patient Inst. Decision time for Depature: 14:04 (ANTHONY VELAZCO) Referrals: ANNI MEJIA MD, DANIEL J MD (PCP/Family) Primary Care Physician Patient Instructions: Temporomandibular Joint (TMJ) Disorders (DC) Add. Discharge Instructions: Recommend soft foods. Recommend naproxen daily. [place] as needed. Flexeril for muscle spasming. May consider mouthguard at night All discharge instructions reviewed with patient and/or family. Voiced understanding. Scripts Cyclobenzaprine HCl (Cyclobenzaprine HCl) 10 Mg Tablet 10 MG PO TID for Muscle Spasms, #14 TAB Prov: ANTHONY VELAZCO 08/04/21 Naproxen (Naproxen) 500 Mg Tablet.dr 500 MG PO BID, #14 TAB Prov: ANTHONY VELAZCO 08/04/21 Hydrocodone/Acetaminophen (Hydrocodone-Acetamin 5-325 mg) 1 Each Tablet 1 TAB PO Q4H PRN for PAIN-MODERATE (5-7), #8 TAB Prov: ANTHONY VELAZCO 08/04/21 Work/School Note: Family Work Note, Work Release Form Date Seen in the Emergency Department: Aug 04, 2021 Return to Work: Aug 06, 2021 ATTENDING PHYSICIAN NOTE: I was physically present as attending physician in the emergency department during the care of this patient, but I was not directly involved in the decision making or delivery of care for this patient. (RADHA MANN MD) ANTHONY VELAZCO Aug 04, 2021 13:25 RADHA MANN MD Aug 04, 2021 20:23
[2021-08-04] MEDS ORDERED: HYDROcodone/APAP 5 MG/325 MG (LORTAB) TAB PO ONE (13:30)
--- NOTE | 2021-08-04 13:53 | Diagnostic Imaging Report ---
HISTORY: Pain in the right mandible near the ear. No known trauma. TECHNIQUE: Three views of the mandible. COMPARISON: None. FINDINGS: No acute fracture is seen in the mandible. Alignment appears normal, particularly in the right temporomandibular region. No cortical erosions are seen. IMPRESSION: 1. No acute osseous abnormality is seen in the mandible. Dictated by: Dictated on workstation # [id number]
[2021-08-04] MEDS ORDERED: ACHD5005 PO (14:06)
[2021-08-04] MEDS ORDERED: NAPR500T8 PO (14:06)
[2021-08-04] MEDS ORDERED: CYCL10TA25 PO (14:06)
[2021-08-04 14:22] VITALS: BP 140/98
== END 2021-08-04 14:22 | disposition home or self-care (01) ==
LOC: ER 12:28
DX: R68.84 Jaw pain (principal); K21.9 Gastro-esophageal reflux disease without esophagitis; F41.9 Anxiety disorder, unspecified; F32.9 Major depressive disorder, single episode, unspecified; G89.29 Other chronic pain; M54.9 Dorsalgia, unspecified; Z79.899 Other long term (current) drug therapy
CPT/HCPCS: 70100